=== PATIENT | female | born 1950 | race Caucasian/White ===

== ENCOUNTER 2018-08-28 08:38 | Outpatient (CLI) | payer MEDICARE, OTHER ==
--- NOTE | 2018-08-28 09:22 | XRAY Report ---
Reason: COUGH Procedure Date: 08/28/2018 Accession Number: [id number] / [id number] Procedure: XRN - Chest 2 View X-Ray CPT Code: 05210 FULL RESULT: EXAM: CHEST RADIOGRAPHY EXAM DATE: 08/28/2018 08:55 AM. CLINICAL HISTORY: Cough. COMPARISON: None. TECHNIQUE: 2 views. FINDINGS: Lungs/Pleura: No focal opacities evident. No pleural effusion. No pneumothorax. Normal volumes. Mediastinum: Heart and mediastinal contours are unremarkable. Other: None. IMPRESSION: No acute cardiopulmonary abnormality. RADIA
== END 2018-08-28 08:39 | disposition home or self-care (01) ==
LOC: DI.N 08:38
PROVIDERS: ATTEND Internal Medicine
DX: R04.2 Hemoptysis (principal)
CPT/HCPCS: 71046

== ENCOUNTER 2020-11-13 08:07 | Outpatient (CLI) | payer MEDICARE, OTHER ==
--- NOTE | 2020-11-13 09:10 | DEXA Report ---
PROCEDURE: Dexa Spine and/or Hip INDICATIONS: PRIMARY HYPERPARATHYROIDISM TECHNIQUE: Dual energy x-ray absorptiometry (DXA) was performed on a Algolux System. Regions measur ed are the AP Spine, femoral neck, and left forearm due to history of hyperparathyroidism.. COMPARISON: None. FINDINGS: Lumbar Spine: Bone Mineral Density 1.575 g/cm/cm,T score 3.3, Left Hip: Bone Mineral Density 1.040 g/cm/cm,T score 0.3, Left Femoral Neck: Bone Mineral Density 1.049 g/cm/cm, T score 0.1, Left forearm: Bone Mineral Density 0.905 g/cm/cm, T score 0.3, (T score greater or equal to -1.0: NORMAL) (T score from -1.1 to -2.4: OSTEOPENIA) (T score less than or equal to -2.5 to: OSTEOPOROSIS) Impression: Normal bone mineral density. Patients with diagnosis of osteoporosis or osteopenia should have regular bone mineral density assess ment. For those eligible for Medicare, routine testing is allowed once every 2 years. Testing frequ ency can be increased for patients who have rapidly progressing disease or for those who are receivin g medical therapy to restore bone mass. Reviewed by: Ruslan Vargas MD on 11/13/2020 9:09 AM PDT Approved by: Ruslan Vargas MD on 11/13/2020 9:09 AM PDT Station ID: [id number]
== END 2020-11-13 08:08 | disposition home or self-care (01) ==
LOC: DI 08:07
PROVIDERS: ATTEND Internal Medicine
DX: E21.0 Primary hyperparathyroidism (principal)

== ENCOUNTER 2020-11-13 08:12 | Outpatient (CLI) | payer MEDICARE, OTHER ==
--- NOTE | 2020-11-16 11:45 | Mammography Report ---
BILATERAL DIGITAL SCREENING MAMMOGRAM 3D/2D: 11/13/2020 CLINICAL: Routine screening. Comparison is made to exams dated: 06/19/2015 ultrasound, 06/19/2015 mammogram, 05/26/2015 mammogram, and 09/23/2009 mammogram - [facility]. The tissue of both breasts is predominantly fatty. There is a stable benign focal asymmetry in both breasts. There also are stable benign calcification s in both breasts. No significant masses, calcifications, or other findings are seen in either breast. There has been no significant interval change. IMPRESSION: BENIGN There is no mammographic evidence of malignancy. A 1 year screening mammogram is recommended. This exam was interpreted at Station ID: [id number]. NOTE: For mammograms, a report in lay terms will be sent to the patient. Approximately 15% of breast malignancies will not be visualized mammographically. In the management of a palpable breast mass, a negative mammogram must not discourage biopsy of a clinically suspicious lesion. Electronically Signed By: Acosta Moody acr/penrad:11/13/2020 12:26:33 ACR BI-RADS Category 2: Benign Finding(s) 3342F PARENCHYMAL PATTERN: (F) - The breast(s) demonstrate(s) diffuse fatty replacement. BI-RADS CATEGORY: (2) - 2 RECOMMENDATION: (ANNUAL) - Recommend routine annual screening mammography. [id number] 1 year screening LATERALITY: (B)
== END 2020-11-13 08:13 | disposition home or self-care (01) ==
LOC: DI 08:12
PROVIDERS: ATTEND Internal Medicine
DX: Z12.31 Encounter for screening mammogram for malignant neoplasm of breast (principal)

== ENCOUNTER 2021-07-19 09:32 | Day surgery (SDC) | payer MEDICARE, OTHER ==
[2021-07-19] MEDS ORDERED: LACTATED RINGERS 1,000 ML IV ONE (10:07)
--- NOTE | 2021-07-19 10:09 | ANESTHESIA ---
Pre-Anesthesia VS, & Labs - Diagnosis positive fit - Procedure colonoscopy Vital Signs: Temp Pulse Resp BP Pulse Ox 36.8 C 71 16 150/87 H 99 07/19/21 09:46 07/19/21 09:46 07/19/21 09:46 07/19/21 09:46 07/19/21 09:46 Height: 5 ft 10 in Weight (kg): 87.6 kg Body Mass Index: 27.7 BMI Classification: Overweight - NPO >8 hours - Is Patient ?: No Home Medications and Allergies Home Medications: Ambulatory Orders 5-Hydroxytryptophan (5-Htp) [5-Htp Cr] 100 mg PO DAILY 07/12/21 Ascorbic Acid [Vitamin C] 500 mg PO DAILY 07/12/21 Aspirin [Aspirin EC] 81 mg PO DAILY 07/12/21 Biotin 5,000 mcg PO DAILY 07/12/21 Levothyroxine [Synthroid] 112 mcg PO QDAC 07/12/21 Multivitamin/Iron/Folic Acid [Centrum Adults Tablet] 1 each PO DAILY 07/12/21 Propranolol [Inderal] 10 mg PO ONCE PRN 07/12/21 Red Rice Yeast 1,200 mg PO DAILY 07/12/21 Ubidecarenone [Co Q-10] 300 mg PO DAILY 07/12/21 flaxseed oiL [Flaxseed Oil] 1,200 mg PO DAILY 07/12/21 5-Hydroxytryptophan (5-Htp) [5-Htp Cr] 100 mg PO DAILY 07/12/21 Ascorbic Acid [Vitamin C] 500 mg PO DAILY 07/12/21 Aspirin [Aspirin EC] 81 mg PO DAILY 07/12/21 Biotin 5,000 mcg PO DAILY 07/12/21 Levothyroxine [Synthroid] 112 mcg PO QDAC 07/12/21 Multivitamin/Iron/Folic Acid [Centrum Adults Tablet] 1 each PO DAILY 07/12/21 Propranolol [Inderal] 10 mg PO ONCE PRN 07/12/21 Red Rice Yeast 1,200 mg PO DAILY 07/12/21 Ubidecarenone [Co Q-10] 300 mg PO DAILY 07/12/21 flaxseed oiL [Flaxseed Oil] 1,200 mg PO DAILY 07/12/21 Allergies/Adverse Reactions: Allergies Allergy/AdvReac Type Severity Reaction Status Date / Time ampicillin Allergy Itching, Verified 07/12/21 12:48 blotchy red face gluten AdvReac Unknown Verified 07/12/21 12:48 ofloxacin AdvReac Nausea, Verified 07/12/21 12:48 dizziness Anes History & Medical History - Anesthetic History Anesthesia Complications: reports: No previous complications - Medical History Cardiovascular: reports: Hypertension, High cholesterol, Other Pulmonary: reports: None Gastrointestinal: reports: Other Urinary: reports: None Musculoskeletal: reports: Osteoarthritis Endocrine/Autoimmune: reports: HyPOthyroidism Skin: reports: Rosacea History of Cancer?: No - Surgical History Gynecologic: reports: Hysterectomy Exam General: Alert, Oriented x3 Dental: WNL Mouth Opening: Greater than 4 Fingerbreadths Neck Mobility: Normal Mallampati classification: II Respiratory: Lungs clear Cardiovascular: Regular rate, Normal S1, Normal S2 Plan Anesthesia Type: Total IV Consent for Procedure(s) Verified and Reviewed: Yes Code Status: Attempt Resuscitation ASA classification: 2-Mild systemic disease Is this case an emergency?: No
[2021-07-19] MEDS ORDERED: PROPOFOL 500 MG/50 ML 500 MG/50 ML VIAL ONE (10:23)
[2021-07-19 11:34] VITALS: BP 122/64
--- NOTE | 2021-07-19 12:36 | ANESTHESIA POST OP EVALUATION ---
Anesthesia Post Eval - Post Anesthesia Eval Vitals: Last Vital Signs Temp 36.6 C 07/19/21 11:14 Pulse 65 07/19/21 11:31 Resp 20 07/19/21 11:31 BP 122/64 07/19/21 11:31 Pulse Ox 98 07/19/21 11:31 CV Function Including HR & BP: Stable Pain Control: Satisfactory Nausea & Vomiting: Negative Mental Status: Baseline Respiratory Status: Airway Patent Hydration Status: Satisfactory Anesthesia Complications: None
== END 2021-07-19 09:33 | disposition home or self-care (01) ==
LOC: SDS 09:32
PROVIDERS: ATTEND Surgery
PROC: 0DBL8ZZ Excision of Transverse Colon, Via Natural or Artificial Opening Endoscopic (ICD-10-PCS; 2021-07-19)
PROC: 0DBH8ZX Excision of Cecum, Via Natural or Artificial Opening Endoscopic, Diagnostic (ICD-10-PCS; principal; 2021-07-19 10:45)
DX: R19.5 Other fecal abnormalities (principal); D12.0 Benign neoplasm of cecum; D12.3 Benign neoplasm of transverse colon; K64.8 Other hemorrhoids; K57.30 Diverticulosis of large intestine without perforation or abscess without bleeding; K64.4 Residual hemorrhoidal skin tags; Z83.71 Family history of colonic polyps
CPT/HCPCS: 45380; 45385; J7120

== ENCOUNTER 2021-08-10 07:10 | Outpatient (CLI) | payer MEDICARE, OTHER ==
[2021-08-10 12:22] LABS: ALBUMIN 4.1 g/dL (3.2-5.5); ALBUMIN/GLOBULIN RATIO 1.1 (1.0-2.2); BILIRUBIN,TOTAL 0.8 mg/dL (0.2-1.0); CALCIUM 10.6 mg/dL (8.5-10.3); CREATININE 0.7 mg/dL (0.4-1.0); TOTAL PROTEIN 7.7 g/dL (6.7-8.2)
[2021-08-10 12:41] LABS: BASOPHILS # (AUTO) 0.1 10^3/uL (0.0-0.1); BASOPHILS % (AUTO) 0.8 %; EOSINOPHILS # (AUTO) 0.2 10^3/uL (0.0-0.7); HCT - HEMATOCRIT 42.4 % (37.0-47.0); LYMPHOCYTES # (AUTO) 2.5 10^3/uL (1.5-3.5); LYMPHOCYTES % (AUTO) 29.6 %; MEAN CORPUSCULAR HEMOGLOBIN 32.6 pg (27.0-31.0); MEAN CORPUSCULAR VOLUME 98.8 fL (81.0-99.0); MEAN PLATELET VOLUME 11.2 fL (7.9-10.8); MONOCYTES # (AUTO) 1.1 10^3/uL (0.0-1.0); MONOCYTES % (AUTO) 13.4 %; NEUTROPHILS # (AUTO) 4.6 10^3/uL (1.5-6.6); PLT - PLATELET COUNT 294 10^3/uL (130-450); RED BLOOD COUNT 4.29 10^6/uL (4.20-5.40); WHITE BLOOD COUNT 8.5 x10^3/uL (4.8-10.8)
== END 2021-08-10 07:11 | disposition home or self-care (01) ==
LOC: LAB.N 07:10
PROVIDERS: ATTEND Surgery
DX: K63.9 Disease of intestine, unspecified (principal)
CPT/HCPCS: 36415; 80053; 82378; 85025

== ENCOUNTER 2021-08-10 13:30 | Outpatient (CLI) | payer MEDICARE, OTHER ==
[2021-08-10] MEDS ORDERED: IOVERSOL 320 100 ML VIAL IVP ONE ×2 (13:46→17:51)
[2021-08-10] MEDS ORDERED: IOVERSOL 320 50 ML VIAL ONE (13:46)
[2021-08-10] MEDS ORDERED: IOVERSOL 320 50 ML VIAL PO ONE (17:51)
--- NOTE | 2021-08-10 21:32 | CT Report ---
PROCEDURE: Abdomen/Pelvis W INDICATIONS: CECAL MASS CONTRAST: IV CONTRAST: Optiray 320 ml: 100 PO CONTRAST: Optiray 320 ml50 TECHNIQUE: After the administration of IV and oral contrast, 5 mm thick sections acquired from the diaphragms to the symphysis. 5 mm thick coronal and sagittal reformats were acquired. For radiation dose reducti on, the following was used: automated exposure control, adjustment of mA and/or kV according to irena ent size. COMPARISON: None. FINDINGS: Image quality: Excellent. ABDOMEN: Lung bases: Lung bases are clear. Heart size is normal. Solid organs: Liver is mildly enlarged measuring 16.4 cm. The spleen is normal in size and enhanceme nt. Hepatic steatosis is present. Gallbladder is unremarkable Biliary system is non dilated. Pancre as enhances normally. No adrenal nodules. Kidneys demonstrate normal size and enhancement, without hydronephrosis. Peritoneum and bowel: Bowel loops demonstrate normal wall thickness and caliber. There is lobulated thickening of the rectum particularly within within the posterior aspect. No distinct cecal mass is i dentified as indicated in history. Prominent stool is present within the cecum. Minimal scattered div erticula are present. No free fluid or air. Nodes and vessels: No retroperitoneal or mesenteric adenopathy by size criteria. Aorta and inferior vena cava are normal in size. Miscellaneous: No ventral hernias. PELVIS: Genitourinary: Bladder wall thickness is normal. Miscellaneous: No inguinal hernias or adenopathy. Bones: No suspicious bony lesions. No vertebral body compression fractures. IMPRESSION: Lobulated thickening of the rectum as described above. Mass in this region cannot be excluded and fur ther evaluation with colonoscopy is recommended. No visualized cecal mass as noted in clinical history. Prominent stool is present within the cecum. Reviewed by: Danielle Nicole MD on 08/10/2021 9:31 PM PST Approved by: Danielle Nicole MD on 08/10/2021 9:31 PM PST Station ID: [id number]
== END 2021-08-10 13:31 | disposition home or self-care (01) ==
LOC: LAB 13:30
PROVIDERS: ATTEND Surgery
DX: K63.9 Disease of intestine, unspecified (principal); R93.3 Abnormal findings on diagnostic imaging of other parts of digestive tract
CPT/HCPCS: 36415; 74177; 80053; 82378; 85025; Q9967

== ENCOUNTER 2021-09-13 07:15 | Inpatient (IN) | payer MEDICARE, OTHER ==
[2021-09-13] MEDS ORDERED: LACTATED RINGERS 1,000 ML IV ONE ×2 (07:24→11:36)
[2021-09-13] MEDS ORDERED: CEFAZOLIN SODIUM IN 0.9 % NACL 2 GM/50 ML BAG IV ONE (07:36)
[2021-09-13] MEDS ORDERED: metroNIDAZOLE 500 MG/100 ML 500 MG/100 ML BAG ONE (07:37)
[2021-09-13] MEDS ORDERED: BUPIVACAINE 0.25% PF 30 ML VIAL ONE (07:49)
[2021-09-13] MEDS ORDERED: LIDOCAINE MPF 2%-EPI 1:200000 20 ML VIAL ONE (07:50)
[2021-09-13] MEDS ORDERED: CELECOXIB 100 MG CAPSULE PO ONE (08:01)
[2021-09-13] MEDS ORDERED: ACETAMINOPHEN 500 MG TABLET PO ONE (08:01)
[2021-09-13] MEDS ORDERED: ACETAMINOPHEN 1,000 MG/100 ML 100 ML IV ONE (08:02)
[2021-09-13] MEDS ORDERED: GABAPENTIN 400 MG CAPSULE ONE (08:02)
--- NOTE | 2021-09-13 08:35 | ANESTHESIA ---
Pre-Anesthesia VS, & Labs - Diagnosis large cecal polyp - Procedure R laparoscopic hemicolectomy Height: 5 ft 9 in Weight (kg): 87.8 kg Body Mass Index: 28.5 BMI Classification: Overweight - NPO >8 hours Last Fluid Intake: sips wERAS meds - Is Patient ?: No - Lab Results Current Lab Results: Laboratory Tests 09/13/21 07:56: POC Whole Bld Glucose 91 Lab results reviewed: Yes Home Medications and Allergies Home Medications: Ambulatory Orders Losartan Potassium 25 mg PO DAILY 09/06/21 5-Hydroxytryptophan (5-Htp) [5-Htp Cr] 100 mg PO DAILY 07/12/21 Ascorbic Acid [Vitamin C] 500 mg PO DAILY 07/12/21 Aspirin [Aspirin EC] 81 mg PO DAILY 07/12/21 Biotin 5,000 mcg PO DAILY 07/12/21 Levothyroxine [Synthroid] 112 mcg PO QDAC 07/12/21 Multivitamin/Iron/Folic Acid [Centrum Adults Tablet] 1 each PO DAILY 07/12/21 Propranolol [Inderal] 10 mg PO ONCE PRN 07/12/21 Red Rice Yeast 1,200 mg PO DAILY 07/12/21 Ubidecarenone [Co Q-10] 300 mg PO DAILY 07/12/21 flaxseed oiL [Flaxseed Oil] 1,200 mg PO DAILY 07/12/21 Losartan Potassium 25 mg PO DAILY 09/06/21 Allergies/Adverse Reactions: Allergies Allergy/AdvReac Type Severity Reaction Status Date / Time ampicillin Allergy Itching, Verified 09/13/21 07:15 blotchy red face gluten AdvReac Unknown Verified 09/13/21 07:15 ofloxacin AdvReac Nausea, Verified 09/13/21 07:15 dizziness Anes History & Medical History - Anesthetic History Anesthesia Complications: reports: No previous complications Family history of Anesthesia Complications: Denies Family history of Malignant Hyperthermia: Denies - Medical History Cardiovascular: reports: Hypertension, High cholesterol, Other Pulmonary: reports: None Gastrointestinal: reports: Other (large cecal polyp found in routine colonoscopsy) Urinary: reports: None Musculoskeletal: reports: Osteoarthritis Endocrine/Autoimmune: reports: HyPOthyroidism Skin: reports: Rosacea History of Cancer?: No - Surgical History General: reports: Colonoscopy Gynecologic: reports: Hysterectomy Exam General: Alert, Oriented x3, Cooperative Dental: WNL Mouth Openin Fingerbreadth Neck Mobility: Normal Mallampati classification: II Thyromental Distance: 4-6 cm Respiratory: Lungs clear, Normal breath sounds, No respiratory distress Cardiovascular: Regular rate (pt states hx of skipping beats, NSR tele) Neurological: Normal speech Mental/Cognitive Status: Alert/Oriented X3, Normal for patient Cognitive Status: Within normal limits Plan Anesthesia Type: General Consent for Procedure(s) Verified and Reviewed: Yes Code Status: Attempt Resuscitation ASA classification: 2-Mild systemic disease Is this case an emergency?: No
[2021-09-13] MEDS ORDERED: ePHEDrine 50 MG/ML VIAL IVP PRN (08:38)
[2021-09-13] MEDS ORDERED: ATROPINE ABBOJECT 1 MG/10 ML SYRINGE IVP PRN (08:38)
[2021-09-13] MEDS ORDERED: fentaNYL 100 MCG/2 ML VIAL IVP PRN (08:38)
[2021-09-13] MEDS ORDERED: ONDANSETRON 4 MG/2 ML VIAL IVP PRN ×2 (08:38→11:28)
[2021-09-13] MEDS ORDERED: NALOXONE 0.4 MG/ML VIAL IVP PRN (08:38)
[2021-09-13] MEDS ORDERED: MORPHINE 2 MG/ML CARPUJECT IVP PRN (08:38)
[2021-09-13] MEDS ORDERED: HYDROmorphone 0.5 MG/0.5 ML SYRINGE IVP PRN ×2 (08:38→11:36)
[2021-09-13] MEDS ORDERED: METOCLOPRAMIDE 10 MG/2 ML VIAL IVP PRN (08:38)
[2021-09-13] MEDS ORDERED: LACTATED RINGERS 1,000 ML IV SCH (09:00)
[2021-09-13] MEDS ORDERED: ROCURONIUM 50 MG/5 ML VIAL ONE ×2 (09:07→10:21)
[2021-09-13] MEDS ORDERED: PROPOFOL 200 MG/20 ML VIAL IVP ONE (09:07)
[2021-09-13] MEDS ORDERED: LIDOCAINE-MPF 2% 5 ML VIAL ONE (09:07)
[2021-09-13] MEDS ORDERED: MIDAZOLAM 2 MG/2 ML VIAL ONE (09:10)
[2021-09-13] MEDS ORDERED: ePHEDrine 50 MG/ML VIAL IVP ONE (09:45)
[2021-09-13] MEDS ORDERED: SODIUM CHLORIDE 0.9% 10 ML VIAL IVP ONE (09:46)
[2021-09-13] MEDS ORDERED: DEXAMETHASONE 4 MG/ML VIAL ONE ×2 (09:48→12:10)
[2021-09-13] MEDS ORDERED: LIDOCAINE MPF 2%-EPI 1:200000 20 ML VIAL SUBQ ONE ×2 (09:52)
[2021-09-13] MEDS ORDERED: BUPIVACAINE 0.25% PF 30 ML VIAL SUBQ ONE ×2 (09:52)
[2021-09-13] MEDS ORDERED: HYDROmorphone 1 MG/ML CARPUJECT ONE (10:13)
[2021-09-13] MEDS ORDERED: KETAMINE 500 MG/10 ML VIAL ONE (10:13)
[2021-09-13] MEDS ORDERED: ROPIVACAINE 0.5% PF 20 ML AMPULE ONE (10:29)
--- NOTE | 2021-09-13 11:21 | OPERATIVE REPORT ---
Operative Report - General Admit Date: 09/13/21 Procedure Date: 09/13/21 Planned Procedure: Laparoscopic right hemicolectomy Pre-Op Diagnosis: Unresectable polyp of the cecum Procedure Performed: Open right colectomy with primary anastomosis Post Op Diagnosis: Unresectable polyp of the cecum - Procedure Note Primary Surgeon: Kenrick Anesthesia Provider: MILTON Sanders Anesthesia Technique: General ET tube, Regional block Pathology: Right colon and attached mesentery Estimated Blood Loss (mL): 25 Findings: 1. Dense pelvic and right upper quadrant adhesions. 2. Obliteration of the white line of Toldt with dense adhesions of the colon to the retroperitoneum. 3. Palpable lesion in the cecum with no abnormality of the serosal surface of the colon. 4. No visibly or palpably enlarged lymph nodes appreciated Complications: None apparent - Other Other Information/Narrative: After obtaining informed consent, the patient is brought to the operating room and placed in the supine position on the operating table. Following successful induction of general endotracheal anesthesia, appropriate padding of all bony prominences, and placement of appropriate monitors, the abdomen was prepped and draped in the standard surgical fashion. A timeout was held per scope protocol. All elements of the surgical safety checklist were followed before, during, and after the procedure. We began the procedure by infiltrating a mixture of local anesthetics inferior to the umbilicus.This was done to create a field block. A small incision was created here and carried through the skin and subcutaneous tissue to reveal the fascia below. 2-0 Vicryl retention sutures were placed on either side of the midline and the abdomen was entered under direct vision using a 10 blade scalpel. A 10 mm blunt Hill balloon trocar was placed in the abdominal cavity.The abdomen was insufflated to 15 mmHg pressure. The camera was placed through the midline port. We immediately noted dense abdominal adhesions with essential obliteration of the pelvic cavity.A second 5 mm trocar was placed in the right upper quadrant after infiltration with local anesthetic.Using these 2 ports, adhesiolysis was undertaken to create a safe space to place a trocar inferior to the umbilicus. A 5 mm blunt Hill balloon trocar was then placed inferior to the umbilicus.The patient was placed in Trendelenburg position. I began examination of the right lower quadrant.The Inc. place at the time of endoscopy was identified. The remainder of the surface of the cecum appeared completely normal. Attempt was made to rotate the cecum medially with realization that the white line of Toldt had been obliterated and there was no normal retroperitoneal space.I continued inferior dissection around the distal ileum and attempted to mobilize safely but I shortly decided that it was not safe to continue laparoscopically as I was not able to clearly identify the ureter.Further examination in the right upper quadrant revealed a shortened mesentery and dense adhesions of the transverse colon into the cheng hepatis.With these things in mind, I made the choice to convert to an open procedure and perform a limited right colectomy leaving the Paddock flexure in place.Trochars were removed and an infraumbilical incision created.A large wound protector was placed.A hand-held retractor was used to help create clear visualization of the right lower quadrant. With this in place, I was able to medially rotate the cecum with careful dissection taking pains to stay on the wall of the cecum. Again I evaluated the lesion and it was palpable but the serosal surface of the colon was completely smooth. The ileocolic vein and artery were identified and ligated at their origin or just distal to their origin. This was done with hemostats and stick ties. The LigaSure device was used to divide the remainder of the mesentery of the right colon. The right colon was then divided using a 75 mm gastrointestinal anastomotic device just proximal to the hepatic flexure. The distal ileum was divided just proximal to the ileocecal valve. Side to side anastomosis was created in a stapled fashion between the distal ileum and the proximal transverse colon. The anastomosis was carefully examined and all portions were oversewn with interrupted Vicryl or silk suture. The common channel was widely patent.The abdomen was then checked for hemostasis. It was irrigated with 2 L of warm saline solution and aspirated free of all fluid and particulate matter.The lower midline incision was then closed with running looped PDS and Monocryl was applied to the skin. The 2 remaining port sites were closed with Monocryl suture. All sponge, needle, and instrument counts are correct at the conclusion of the case. The patient was let awake from anesthesia without difficulty and taken to the postanesthesia care unit in good condition. She did receive a TAP block per anesthesia following the procedure.
[2021-09-13] MEDS ORDERED: SUGAMMADEX 200 MG/2 ML VIAL IVP ONE ×2 (11:24→12:26)
[2021-09-13] MEDS ORDERED: methocarbamoL 500 MG TABLET PO PRN (11:36)
--- NOTE | 2021-09-13 12:57 | ANESTHESIA POST OP EVALUATION ---
Anesthesia Post Eval - Post Anesthesia Eval Vitals: Last Vital Signs Temp 36.4 C L 09/13/21 12:38 Pulse 68 09/13/21 12:38 Resp 20 09/13/21 12:38 BP 126/57 L 09/13/21 12:38 Pulse Ox 93 09/13/21 12:38 CV Function Including HR & BP: Stable Pain Control: Satisfactory Nausea & Vomiting: Negative Mental Status: Baseline Respiratory Status: Airway Patent Hydration Status: Satisfactory Anesthesia Complications: None
[2021-09-13] MEDS: LACTATED RINGERS 1,000 ML IV SCH (13:25)
[2021-09-13] MEDS: KETOROLAC 15 MG/ML VIAL IVP SCH ×3 (13:26→23:57)
[2021-09-13] MEDS: ACETAMINOPHEN 325 MG TABLET PO SCH ×3 (13:26→23:57)
--- NOTE | 2021-09-13 17:35 | PHARMACY PROGRESS NOTE ---
- Best Possible Medication History Admit Date and Time: 09/13/21 0715 Processed by: Nursing Medication History completed: Yes As the person ultimately responsible for medication therapy, providers are able to order a medication from an existing home medication list in [facility] via the "Reconcile Routine" prior to Confirmation of that medication by it support manager. Such practice is discouraged except when the physician, in their clinical judgment, deems that a medical need exists for a medication without regard to previous use.
[2021-09-13] MEDS: ceFAZolin 2 GM in SODIUM CHLORIDE 0.9% 100ML 100 ML IV SCH (17:56)
[2021-09-13] MEDS: metroNIDAZOLE 500 MG/100 ML 500 MG/100 ML BAG IV SCH (19:15)
[2021-09-13] MEDS: PREGABALIN 25 MG CAPSULE PO SCH (20:46)
[2021-09-14] MEDS: ceFAZolin 2 GM in SODIUM CHLORIDE 0.9% 100ML 100 ML IV SCH (02:07)
[2021-09-14] MEDS: metroNIDAZOLE 500 MG/100 ML 500 MG/100 ML BAG IV SCH (02:48)
[2021-09-14 05:18] LABS: BASOPHILS % (AUTO) 0.3 %; HCT - HEMATOCRIT 33.4 % (37.0-47.0); HGB - HEMOGLOBIN 11.1 g/dL (12.0-16.0); LYMPHOCYTES % (AUTO) 10.3 %; MEAN CORPUSCULAR HEMOGLOBIN 32.3 pg (27.0-31.0); MEAN CORPUSCULAR HGB CONC 33.2 g/dL (32.0-36.0); MEAN CORPUSCULAR VOLUME 97.1 fL (81.0-99.0); MEAN PLATELET VOLUME 10.3 fL (7.9-10.8); PLT - PLATELET COUNT 206 10^3/uL (130-450); RED BLOOD COUNT 3.44 10^6/uL (4.20-5.40); RED CELL DISTRIBUTION WIDTH 13.9 % (12.0-15.0); WHITE BLOOD COUNT 15.9 x10^3/uL (4.8-10.8)
[2021-09-14 05:22] LABS: ABNORMAL LYMPHS % (MANUAL) 0 %; BAND NEUTROPHILS % (MANUAL) 0 %
[2021-09-14 05:34] LABS: ALBUMIN/GLOBULIN RATIO 1.2 (1.0-2.2); BILIRUBIN,TOTAL 0.7 mg/dL (0.2-1.0); CREATININE 0.7 mg/dL (0.4-1.0); POTASSIUM 3.9 mmol/L (3.5-5.0); TOTAL PROTEIN 5.5 g/dL (6.7-8.2)
[2021-09-14 05:43] LABS: DIFFERENTIAL COMMENT MANUAL DIFFERENTIAL; LYMPHOCYTES # (MANUAL) 1.7 10^3/uL (1.5-3.5); LYMPHOCYTES % (MANUAL) 11 %; MONOCYTES # (MANUAL) 1.4 10^3/uL (0.0-1.0); NEUTROPHILS # (MANUAL) 12.7 10^3/uL (1.5-6.6); PLATELET ESTIMATE, MANUAL NORMAL (130-450,000) (NORMAL); PLATELET MORPHOLOGY NORMAL APPEARANCE (NORMAL); RBC MORPHOLOGY (MULTIPLE) NORMAL APPEARANCE (NORMAL); WBC MORPHOLOGY (MULTIPLE) NORMAL APPEARANCE (NORMAL)
[2021-09-14] MEDS: KETOROLAC 15 MG/ML VIAL IVP SCH ×4 (06:02→23:52)
[2021-09-14] MEDS: ACETAMINOPHEN 325 MG TABLET PO SCH ×4 (06:02→23:52)
[2021-09-14] MEDS: PANTOPRAZOLE 40 MG TABLET PO SCH (06:02)
[2021-09-14] MEDS: LEVOTHYROXINE 112 MCG TABLET PO SCH (06:02)
[2021-09-14] MEDS: LOSARTAN 50 MG TABLET PO SCH (08:32)
[2021-09-14] MEDS: PREGABALIN 25 MG CAPSULE PO SCH ×2 (08:32→20:31)
[2021-09-14] MEDS: ENOXAPARIN 40 MG/0.4 ML SYRINGE SUBQ SCH (08:33)
[2021-09-14] MEDS: polyethylene glycoL 3350 17 GM PACKET PO SCH (10:33)
--- NOTE | 2021-09-14 12:46 | PROVIDER PROGRESS NOTE ---
Subjective - General Admit Date: 09/13/21 Procedure Date: 09/13/21 Post Op Days: 1 - Review of Systems Wound/Incisions: positive: Healing well, Dressing dry and intact General: positive: No symptoms HEENT: positive: No symptoms Pulmonary: positive: No symptoms Cardiovascular: positive: No symptoms Gastrointestinal: positive: No symptoms Genitourinary: positive: No symptoms Musculoskeletal: positive: No symptoms Skin: positive: No symptoms Psychiatric: positive: No symptoms All Other Systems: positive: Reviewed and negative - Other Other Information/Narrative: Lora is in really good spirits today. She denies any pain at all. She says she saw double yesterday but today she feels a little unsteady on her feet but otherwise quite good.She is sitting up at the bedside crocheting hat. She had 1 episode of emesis shortly after arriving to her room yesterday following surgery but has not had any nausea since. Objective - Patient Data Reviewed Vital Signs: Yes Vital Signs: Vital Signs x48h Temp Pulse Pulse Resp BP Pulse Ox 09/14/21 11:32 36.8 C 80 20 109/47 L 99 09/14/21 08:00 36.8 C 83 18 113/48 L 97 09/14/21 04:53 36.3 C L 78 16 110/52 L 96 Weight: Weight 09/12/21 09/13/21 09/14/21 23:59 23:59 23:59 Weight (kg) 87.8 kg Intake & Output: Intake and Output Totals x24h 09/12/21 09/13/21 09/14/21 23:59 23:59 23:59 Intake Total 1950 700 Output Total 1435 500 Balance 515 200 - Lab Results Lab Results: 09/14/21 04:50 09/14/21 04:50 Other Lab Results: Lab Results x24hrs 09/14/21 09/14/21 09/14/21 Range/Units 11:19 07:35 04:50 WBC (4.8-10.8) x10^3/uL RBC (4.20-5.40) 10^6/uL Hgb (12.0-16.0) g/dL Hct (37.0-47.0) % MCV (81.0-99.0) fL MCH (27.0-31.0) pg MCHC (32.0-36.0) g/dL RDW (12.0-15.0) % Plt Count (130-450) 10^3/uL MPV (7.9-10.8) fL Neut # (Auto) Lymph # (Auto) [place] # (Auto) Eos # (Auto) Baso # (Auto) Absolute Nucleated RBC Total Counted Band Neuts % (Manual) (0 - 10) % Abnorm Lymph % (Manual) % Nucleated RBC % Neutrophils # (Manual) (1.5-6.6) 10^3/uL Lymphocytes # (Manual) (1.5-3.5) 10^3/uL Monocytes # (Manual) (0.0-1.0) 10^3/uL Eosinophils # (Manual) (0-0.7) 10^3/uL Basophils # (Manual) (0-0.1) 10^3/uL Differential Comment WBC Morphology (NORMAL) Platelet Estimate (NORMAL) Platelet Morphology (NORMAL) RBC Morph Micro Appear (NORMAL) Sodium 138 (135-145) mmol/L Potassium 3.9 (3.5-5.0) mmol/L Chloride 107 (101-111) mmol/L Carbon Dioxide 23 (21-32) mmol/L Anion Gap 8.0 (6-13) BUN 17 (6-20) mg/dL Creatinine 0.7 (0.4-1.0) mg/dL Estimated GFR (MDRD) 82 L (>89) Glucose 119 H (70-100) mg/dL POC Whole Bld Glucose 108 H 105 H (70 - 100) mg/dL Calcium 9.0 (8.5-10.3) mg/dL Total Bilirubin 0.7 (0.2-1.0) mg/dL AST 28 (10-42) IU/L ALT 27 (10-60) IU/L Alkaline Phosphatase 27 L (42-121) IU/L Total Protein 5.5 L (6.7-8.2) g/dL Albumin 3.0 L (3.2-5.5) g/dL Globulin 2.5 (2.1-4.2) g/dL Albumin/Globulin Ratio 1.2 (1.0-2.2) 09/14/21 09/13/21 09/13/21 Range/Units 04:50 20:16 16:53 WBC 15.9 H (4.8-10.8) x10^3/uL RBC 3.44 L (4.20-5.40) 10^6/uL Hgb 11.1 L (12.0-16.0) g/dL Hct 33.4 L (37.0-47.0) % MCV 97.1 (81.0-99.0) fL MCH 32.3 H (27.0-31.0) pg MCHC 33.2 (32.0-36.0) g/dL RDW 13.9 (12.0-15.0) % Plt Count 206 (130-450) 10^3/uL MPV 10.3 (7.9-10.8) fL Neut # (Auto) Not Reportable Lymph # (Auto) Not Reportable [place] # (Auto) Not Reportable Eos # (Auto) Not Reportable Baso # (Auto) Not Reportable Absolute Nucleated RBC Not Reportable Total Counted 100 Band Neuts % (Manual) 0 (0 - 10) % Abnorm Lymph % (Manual) 0 % Nucleated RBC % Not Reportable Neutrophils # (Manual) 12.7 H (1.5-6.6) 10^3/uL Lymphocytes # (Manual) 1.7 (1.5-3.5) 10^3/uL Monocytes # (Manual) 1.4 H (0.0-1.0) 10^3/uL Eosinophils # (Manual) 0.0 (0-0.7) 10^3/uL Basophils # (Manual) 0.0 (0-0.1) 10^3/uL Differential Comment MANUAL DIFFERENTIAL WBC Morphology NORMAL APPEARANCE (NORMAL) Platelet Estimate NORMAL (130-450,000) (NORMAL) Platelet Morphology NORMAL APPEARANCE (NORMAL) RBC Morph Micro Appear NORMAL APPEARANCE (NORMAL) Sodium (135-145) mmol/L Potassium (3.5-5.0) mmol/L Chloride (101-111) mmol/L Carbon Dioxide (21-32) mmol/L Anion Gap (6-13) BUN (6-20) mg/dL Creatinine (0.4-1.0) mg/dL Estimated GFR (MDRD) (>89) Glucose (70-100) mg/dL POC Whole Bld Glucose 159 H 127 H (70 - 100) mg/dL Calcium (8.5-10.3) mg/dL Total Bilirubin (0.2-1.0) mg/dL AST (10-42) IU/L ALT (10-60) IU/L Alkaline Phosphatase (42-121) IU/L Total Protein (6.7-8.2) g/dL Albumin (3.2-5.5) g/dL Globulin (2.1-4.2) g/dL Albumin/Globulin Ratio (1.0-2.2) - Current Medications Current Medications: Current Medications Generic Name Dose Route Start Last Admin Trade Name Freq PRN Reason Stop Dose Admin Acetaminophen 650 mg 09/13/21 13:00 09/14/21 06:02 Acetaminophen 325 Mg Tablet PO 650 mg Q6HR KASIE Administration Enoxaparin Sodium 40 mg 09/14/21 09:00 09/14/21 08:33 Enoxaparin 40 Mg/0.4 Ml Syringe SUBQ 40 mg DAILY KASIE Administration Lactated Ringer's 1,000 mls @ 50 mls/hr 09/13/21 12:00 09/13/21 13:25 Lr IV 50 mls/hr .Q20H KASIE Administration Ketorolac Tromethamine 15 mg 09/13/21 13:00 09/14/21 06:02 Ketorolac 15 Mg/Ml Vial IVP 09/18/21 12:59 15 mg Q6HR KASIE Administration Levothyroxine Sodium 112 mcg 09/14/21 07:00 09/14/21 06:02 Levothyroxine 112 Mcg Tablet PO 112 mcg QDAC KASIE Administration Losartan Potassium 25 mg 09/14/21 09:00 09/14/21 08:32 Losartan 50 Mg Tablet PO 25 mg DAILY KASIE Administration Ondansetron HCl 4 mg 09/13/21 11:28 09/13/21 13:48 Ondansetron 4 Mg/2 Ml Vial IVP 4 mg Q6HR PRN Administration Nausea / Vomiting Pantoprazole Sodium 40 mg 09/14/21 07:00 09/14/21 06:02 Pantoprazole 40 Mg Tablet PO 40 mg QDAC KASIE Administration Polyethylene Glycol 17 gm 09/14/21 11:00 09/14/21 10:33 Polyethylene Glycol 3350 17 Gm Packet PO 17 gm DAILY KASIE Administration Pregabalin 75 mg 09/13/21 21:00 09/14/21 08:32 Pregabalin 25 Mg Capsule PO 75 mg BID KASIE Administration - Physical Exam Wound/Incisions: positive: Healing well, Dressing dry and intact General Appearance: positive: No acute distress Eyes Bilateral: positive: Normal inspection, PERRL, EOMI ENT: positive: ENT inspection nml Neck: positive: Nml inspection Respiratory: positive: Chest non-tender, No respiratory distress, Breath sounds nml Cardiovascular: positive: Regular rate & rhythm Abdomen: positive: Nml bowel sounds, Tenderness. negative: Guarding, Rebound Back: positive: Nml inspection. negative: CVA tenderness (R), CVA tenderness (L) Skin: positive: Color nml Extremities: positive: Non-tender, Full ROM Neurologic/Psychiatric: positive: Oriented x3 ABX Reporting Has patient been on IV antibiotics over the past 48 hours?: Yes Impression/Plan - Problem List Problem List: Postop day 1 after right hemicolectomy for unresectable cecal mass. Awaiting pathology. 1. Continue eras protocol 2. Pain control appears to be excellent 3. Likely home Monday or . 4. Needs to walk in the halls and be a little steadier on her feet
[2021-09-14] MEDS: LACTATED RINGERS 1,000 ML IV SCH (13:43)
[2021-09-15] MEDS: LACTATED RINGERS 1,000 ML IV SCH (03:44)
[2021-09-15] MEDS: ACETAMINOPHEN 325 MG TABLET PO SCH ×3 (05:13→20:02)
[2021-09-15] MEDS: KETOROLAC 15 MG/ML VIAL IVP SCH ×3 (05:13→20:02)
[2021-09-15 05:52] LABS: BASOPHILS # (AUTO) 0.1 10^3/uL (0.0-0.1); BASOPHILS % (AUTO) 0.4 %; EOSINOPHILS # (AUTO) 0.1 10^3/uL (0.0-0.7); EOSINOPHILS % (AUTO) 1.1 %; HCT - HEMATOCRIT 34.1 % (37.0-47.0); HGB - HEMOGLOBIN 11.4 g/dL (12.0-16.0); LYMPHOCYTES % (AUTO) 15.2 %; MEAN CORPUSCULAR HEMOGLOBIN 32.7 pg (27.0-31.0); MEAN CORPUSCULAR HGB CONC 33.4 g/dL (32.0-36.0); MEAN CORPUSCULAR VOLUME 97.7 fL (81.0-99.0); MONOCYTES # (AUTO) 0.9 10^3/uL (0.0-1.0); MONOCYTES % (AUTO) 6.9 %; NEUTROPHILS # (AUTO) 9.8 10^3/uL (1.5-6.6); PLT - PLATELET COUNT 194 10^3/uL (130-450); RED BLOOD COUNT 3.49 10^6/uL (4.20-5.40); RED CELL DISTRIBUTION WIDTH 13.8 % (12.0-15.0)
[2021-09-15] MEDS: PANTOPRAZOLE 40 MG TABLET PO SCH (06:03)
[2021-09-15] MEDS: LEVOTHYROXINE 112 MCG TABLET PO SCH (06:03)
[2021-09-15 06:06] LABS: ALBUMIN 3.1 g/dL (3.2-5.5); CREATININE 0.9 mg/dL (0.4-1.0); POTASSIUM 3.8 mmol/L (3.5-5.0); TOTAL PROTEIN 6.1 g/dL (6.7-8.2)
[2021-09-15] MEDS: ENOXAPARIN 40 MG/0.4 ML SYRINGE SUBQ SCH (08:47)
[2021-09-15] MEDS: PREGABALIN 25 MG CAPSULE PO SCH ×2 (08:48→20:02)
[2021-09-15] MEDS: LOSARTAN 50 MG TABLET PO SCH (08:48)
[2021-09-15] MEDS: polyethylene glycoL 3350 17 GM PACKET PO SCH (08:49)
[2021-09-16] MEDS: KETOROLAC 15 MG/ML VIAL IVP SCH ×2 (00:10→06:12)
[2021-09-16] MEDS: ACETAMINOPHEN 325 MG TABLET PO SCH ×2 (00:10→06:12)
[2021-09-16 05:28] LABS: BASOPHILS % (AUTO) 0.3 %; EOSINOPHILS # (AUTO) 0.4 10^3/uL (0.0-0.7); EOSINOPHILS % (AUTO) 3.4 %; HGB - HEMOGLOBIN 9.6 g/dL (12.0-16.0); LYMPHOCYTES # (AUTO) 1.7 10^3/uL (1.5-3.5); MEAN CORPUSCULAR HEMOGLOBIN 31.7 pg (27.0-31.0); MEAN CORPUSCULAR HGB CONC 33.1 g/dL (32.0-36.0); MEAN CORPUSCULAR VOLUME 95.7 fL (81.0-99.0); MEAN PLATELET VOLUME 10.4 fL (7.9-10.8); MONOCYTES % (AUTO) 8.2 %; NEUTROPHILS # (AUTO) 8.4 10^3/uL (1.5-6.6); NEUTROPHILS % (AUTO) 72.6 %; PLT - PLATELET COUNT 185 10^3/uL (130-450); RED BLOOD COUNT 3.03 10^6/uL (4.20-5.40); RED CELL DISTRIBUTION WIDTH 13.3 % (12.0-15.0); WHITE BLOOD COUNT 11.6 x10^3/uL (4.8-10.8)
[2021-09-16 05:40] LABS: ALBUMIN 2.6 g/dL (3.2-5.5); BILIRUBIN,TOTAL 0.6 mg/dL (0.2-1.0); CALCIUM 8.3 mg/dL (8.5-10.3); CREATININE 0.7 mg/dL (0.4-1.0); POTASSIUM 3.7 mmol/L (3.5-5.0); TOTAL PROTEIN 5.3 g/dL (6.7-8.2)
[2021-09-16] MEDS: LEVOTHYROXINE 112 MCG TABLET PO SCH (06:12)
[2021-09-16] MEDS: PANTOPRAZOLE 40 MG TABLET PO SCH (06:12)
[2021-09-16 07:19] VITALS: BP 123/53
[2021-09-16] MEDS: PREGABALIN 25 MG CAPSULE PO SCH (08:07)
[2021-09-16] MEDS: LOSARTAN 50 MG TABLET PO SCH (08:08)
[2021-09-16] MEDS: polyethylene glycoL 3350 17 GM PACKET PO SCH (08:08)
[2021-09-16] MEDS: ENOXAPARIN 40 MG/0.4 ML SYRINGE SUBQ SCH (08:08)
--- NOTE | 2021-09-16 09:07 | PROVIDER PROGRESS NOTE ---
Subjective - Prog Note Date Prog Note Date: 09/15/21 Prog Note Time: 08:35 - Subjective Pt reports feeling: Improved Subjective: Lora decided to not take her Tylenol and Toradol last evening and she woke up in pain. Fortunately, soon as she got her medication she felt better. Today she denies any pain. She did have 1 small bowel movement that she said was a little chunky but not really solid. She denies any nausea and has been tolerating her diet without difficulty. Objective - Vital Signs/Intake & Output Reviewed Vital Signs: Yes Vital Signs: Vital Signs x48h Temp Pulse Resp BP Pulse Ox 09/16/21 07:16 36.6 C 67 16 123/53 L 100 09/16/21 05:00 36.7 C 76 17 119/56 L 97 Intake & Output: Intake & Output 09/13/21 09/14/21 09/15/21 09/16/21 23:59 23:59 23:59 23:59 Intake Total 1950 4768 3130 530 Output Total 1435 1475 1425 Balance 515 3293 1705 530 - Objective General Appearance: positive: No acute distress, Alert Eyes Bilateral: positive: Normal inspection ENT: positive: ENT inspection nml Neck: positive: Nml inspection Respiratory: positive: No respiratory distress, Breath sounds nml Cardiovascular: positive: Regular rate & rhythm Abdomen: positive: Tenderness, Other (Incision is well approximated, clean, and without erythema. Mild bruising.). negative: Guarding, Rebound Back: positive: Nml inspection Skin: positive: Color nml Extremities: positive: Non-tender Neurologic/Psychiatric: positive: Oriented x3 - Lab Results Fish Bones: 09/16/21 04:50 09/16/21 04:50 Other Labs: Lab Results x24hrs 09/16/21 09/16/21 09/16/21 Range/Units 07:15 04:50 04:50 WBC 11.6 H (4.8-10.8) x10^3/uL RBC 3.03 L (4.20-5.40) 10^6/uL Hgb 9.6 L (12.0-16.0) g/dL Hct 29.0 L (37.0-47.0) % MCV 95.7 (81.0-99.0) fL MCH 31.7 H (27.0-31.0) pg MCHC 33.1 (32.0-36.0) g/dL RDW 13.3 (12.0-15.0) % Plt Count 185 (130-450) 10^3/uL MPV 10.4 (7.9-10.8) fL Neut # (Auto) 8.4 H (1.5-6.6) 10^3/uL Lymph # (Auto) 1.7 (1.5-3.5) 10^3/uL [place] # (Auto) 1.0 (0.0-1.0) 10^3/uL Eos # (Auto) 0.4 (0.0-0.7) 10^3/uL Baso # (Auto) 0.0 (0.0-0.1) 10^3/uL Absolute Nucleated RBC 0.00 x10^3/uL Nucleated RBC % 0.0 /100WBC Sodium 128 L (135-145) mmol/L Potassium 3.7 (3.5-5.0) mmol/L Chloride 100 L (101-111) mmol/L Carbon Dioxide 21 (21-32) mmol/L Anion Gap 7.0 (6-13) BUN 15 (6-20) mg/dL Creatinine 0.7 (0.4-1.0) mg/dL Estimated GFR (MDRD) 82 L (>89) Glucose 98 (70-100) mg/dL POC Whole Bld Glucose 87 (70 - 100) mg/dL Calcium 8.3 L (8.5-10.3) mg/dL Total Bilirubin 0.6 (0.2-1.0) mg/dL AST 31 (10-42) IU/L ALT 26 (10-60) IU/L Alkaline Phosphatase 30 L (42-121) IU/L Total Protein 5.3 L (6.7-8.2) g/dL Albumin 2.6 L (3.2-5.5) g/dL Globulin 2.7 (2.1-4.2) g/dL Albumin/Globulin Ratio 1.0 (1.0-2.2) 09/15/21 09/15/21 09/15/21 Range/Units 21:09 16:31 11:07 WBC (4.8-10.8) x10^3/uL RBC (4.20-5.40) 10^6/uL Hgb (12.0-16.0) g/dL Hct (37.0-47.0) % MCV (81.0-99.0) fL MCH (27.0-31.0) pg MCHC (32.0-36.0) g/dL RDW (12.0-15.0) % Plt Count (130-450) 10^3/uL MPV (7.9-10.8) fL Neut # (Auto) (1.5-6.6) 10^3/uL Lymph # (Auto) (1.5-3.5) 10^3/uL [place] # (Auto) (0.0-1.0) 10^3/uL Eos # (Auto) (0.0-0.7) 10^3/uL Baso # (Auto) (0.0-0.1) 10^3/uL Absolute Nucleated RBC x10^3/uL Nucleated RBC % /100WBC Sodium (135-145) mmol/L Potassium (3.5-5.0) mmol/L Chloride (101-111) mmol/L Carbon Dioxide (21-32) mmol/L Anion Gap (6-13) BUN (6-20) mg/dL Creatinine (0.4-1.0) mg/dL Estimated GFR (MDRD) (>89) Glucose (70-100) mg/dL POC Whole Bld Glucose 111 H 114 H 82 (70 - 100) mg/dL Calcium (8.5-10.3) mg/dL Total Bilirubin (0.2-1.0) mg/dL AST (10-42) IU/L ALT (10-60) IU/L Alkaline Phosphatase (42-121) IU/L Total Protein (6.7-8.2) g/dL Albumin (3.2-5.5) g/dL Globulin (2.1-4.2) g/dL Albumin/Globulin Ratio (1.0-2.2) ABX Reporting Has patient been on IV antibiotics over the past 48 hours?: Yes Assessment/Plan - Problem List (1) Tubulovillous adenoma of colon Impression: Day #2 after right hemicolectomy for 2 very large tubulovillous adenomata of the proximal right colon. Multiple smaller tubulovillous polyps were appreciated as well. Fortunately, there is no invasive malignancy and all the margins are clear. 1. Encourage ambulation. She is much more steady on her feet. 2. Consider home tomorrow if she continues to do well.
--- NOTE | 2021-09-16 09:11 | Discharge Plan ---
Discharge Plan Problem Reviewed?: Yes Disposition: Home, Self Care Condition: Good Prescriptions: methocarbamoL [Robaxin] 500 mg PO Q6HR PRN #30 tablet PRN Reason: Spasms Pregabalin [Lyrica] 75 mg PO BID #20 cap Diet: Regular Activity Restrictions: 10 pound lifting restrict Shower Restrictions: No Driving Restrictions: Yes (After follow up) No Smoking: If you smoke, Please STOP! Call for help. Follow-up with: Finn Stubbs MD [Primary Care Provider] - Anna Choudhary MD [Provider Admit Priv/Credential] -
--- NOTE | 2021-09-16 09:13 | DISCHARGE SUMMARY ---
Discharge Summary Admit Date: 09/13/21 Discharge Date: 09/16/21 Discharging Provider: Kenrick Primary Care Provider: Stubbs Code Status: Attempt Resuscitation Condition at Discharge: Good Discharge Disposition: 01 Home, Self Care - DIAGNOSES Admission Diagnoses: Unresectable tubulovillous adenoma Discharge Diagnoses with Status of Each Condition: Resolved - HPI History of Present Illness: Lora is a wonderful 71-year-old lady who I met several years ago at my prior practice. She has a strong family history of colon polyps and colon cancer both in her mother and in her 3 daughters. She presented for her first colonoscopy and was found to have 2 very large tubulovillous adenomas in the right colon. Both of these were considered too large for endoscopic resection. In addition to these very large polyps that she had multiple other smaller polyps in the right colon and then a few other scattered throughout the remainder of the colon. CT scan was without evidence of malignancy or adenopathy. CEA was normal. On the date of surgery she presented for laparoscopic right hemicolec celia. - HOSPITAL COURSE Hospital Course: The surgical procedure was relatively uneventful. She was noted to have dense abdominal adhesions with scarring of the colon into the cheng hepatis and obliteration of the retroperitoneal planes around the right colon. For this reason the procedure was converted to open and then was successfully undertaken. [facility] and has had a smooth course. At this time, she is eating a regular diet without difficulty, walking unassisted, and having regular bowel movements. She has not required any narcotic pain medication since the day of surgery.To her home in the care of her 3 daughters. Discharge medications will include methocarbamol 500 mg every 6 hours, Lyrica 75 mg twice daily, and acetaminophen and ibuprofen as needed. - ALLERGIES Allergies/Adverse Reactions: Allergies Allergy/AdvReac Type Severity Reaction Status Date / Time ampicillin Allergy Itching, Verified 09/13/21 07:15 blotchy red face gluten AdvReac Unknown Verified 09/13/21 07:15 ofloxacin AdvReac Nausea, Verified 09/13/21 07:15 dizziness - MEDICATIONS Home Medications: Ambulatory Orders Medication Instructions Recorded Confirmed 5-Hydroxytryptophan (5-Htp) [5-Htp 100 mg PO DAILY 07/12/21 09/13/21 Cr] Ascorbic Acid [Vitamin C] 500 mg PO DAILY 07/12/21 09/13/21 Aspirin [Aspirin EC] 81 mg PO DAILY 07/12/21 09/13/21 Biotin 5,000 mcg PO DAILY 07/12/21 09/13/21 Levothyroxine [Synthroid] 112 mcg PO QDAC 07/12/21 09/13/21 Multivitamin/Iron/Folic Acid 1 each PO DAILY 07/12/21 09/13/21 [Centrum Adults Tablet] Propranolol [Inderal] 10 mg PO ONCE PRN 07/12/21 09/13/21 Red Rice Yeast 1,200 mg PO DAILY 07/12/21 09/13/21 Ubidecarenone [Co Q-10] 300 mg PO DAILY 07/12/21 09/13/21 flaxseed oiL [Flaxseed Oil] 1,200 mg PO DAILY 07/12/21 09/13/21 Losartan Potassium 25 mg PO DAILY 09/06/21 09/13/21 Acetaminophen [Tylenol] 650 mg PO Q6HR tablet 09/16/21 Pregabalin [Lyrica] 75 mg PO BID #20 cap 09/16/21 methocarbamoL [Robaxin] 500 mg PO Q6HR PRN #30 tablet 09/16/21 - PHYSICAL EXAM AT DISCHARGE General Appearance: positive: No acute distress, Alert Eyes Bilateral: positive: Normal inspection, PERRL, EOMI ENT: positive: ENT inspection nml Neck: positive: Nml inspection Respiratory: positive: No respiratory distress, Breath sounds nml Cardiovascular: positive: Regular rate & rhythm Peripheral Pulses: positive: 1+ Abdomen: positive: Nml bowel sounds, No distention. negative: Guarding, Rebound Back: negative: CVA tenderness (R), CVA tenderness (L) Skin: positive: Color nml, No rash Neurologic/Psychiatric: positive: Oriented x3 - LABS Result Diagrams: 09/16/21 04:50 09/16/21 04:50 - QUALITY (Female Hip Fx Only) Was patient sent home on osteoporosis medication?: No - FOLLOW UP Follow Up: As previously scheduled with [facility] surgical clinic. - TIME SPENT Time Spent in Discharge (Minutes): 20
== END 2021-09-16 10:45 | disposition home or self-care (01) | DRG 331 ==
LOC: MS2 07:15
PROVIDERS: ADMIT Surgery; ATTEND Surgery
PROC: 0WJP4ZZ Inspection of Gastrointestinal Tract, Percutaneous Endoscopic Approach (ICD-10-PCS; 2021-09-13)
PROC: 0DTF0ZZ Resection of Right Large Intestine, Open Approach (ICD-10-PCS; principal; 2021-09-13 08:45)
DX: D12.0 Benign neoplasm of cecum (principal); K66.0 Peritoneal adhesions (postprocedural) (postinfection); E21.0 Primary hyperparathyroidism; E78.5 Hyperlipidemia, unspecified; I10 Essential (primary) hypertension; Z53.31 Laparoscopic surgical procedure converted to open procedure; Z79.82 Long term (current) use of aspirin; Z79.890 Hormone replacement therapy; Z79.899 Other long term (current) drug therapy; Z80.0 Family history of malignant neoplasm of digestive organs; Z83.71 Family history of colonic polyps; Z88.0 Allergy status to penicillin; Z88.8 Allergy status to other drugs, medicaments and biological substances
CPT/HCPCS: 36415; 80053; 85025; A9270; J0131; J0690; J1650; J7120

== ENCOUNTER 2022-08-01 19:53 | Emergency (ER) | payer MEDICARE, OTHER ==
[2022-08-01 20:26] LABS: BASOPHILS # (AUTO) 0.1 10^3/uL (0.0-0.1); BASOPHILS % (AUTO) 0.9 %; EOSINOPHILS # (AUTO) 0.3 10^3/uL (0.0-0.7); EOSINOPHILS % (AUTO) 2.8 %; HCT - HEMATOCRIT 40.9 % (37.0-47.0); HGB - HEMOGLOBIN 13.3 g/dL (12.0-16.0); LYMPHOCYTES # (AUTO) 3.4 10^3/uL (1.5-3.5); LYMPHOCYTES % (AUTO) 38.2 %; MEAN CORPUSCULAR HEMOGLOBIN 31.7 pg (27.0-31.0); MEAN CORPUSCULAR HGB CONC 32.5 g/dL (32.0-36.0); MEAN CORPUSCULAR VOLUME 97.4 fL (81.0-99.0); MEAN PLATELET VOLUME 9.9 fL (7.9-10.8); MONOCYTES # (AUTO) 1.2 10^3/uL (0.0-1.0); MONOCYTES % (AUTO) 13.1 %; NEUTROPHILS # (AUTO) 3.9 10^3/uL (1.5-6.6); NEUTROPHILS % (AUTO) 44.9 %; PLT - PLATELET COUNT 265 10^3/uL (130-450); RED CELL DISTRIBUTION WIDTH 14.6 % (12.0-15.0); WHITE BLOOD COUNT 8.8 x10^3/uL (4.8-10.8)
--- NOTE | 2022-08-01 20:37 | XRAY Report ---
PROCEDURE: Chest 1 View X-Ray INDICATIONS: Chest pain TECHNIQUE: One view of the chest was acquired. COMPARISON: Lung bases on CT abdomen pelvis 08/10/2021. CXR 08/28/2018. FINDINGS: Surgical changes and devices: None. Lungs and pleura: No pleural effusions or pneumothorax. Lungs appear clear. Mediastinum: Mediastinal contours appear unchanged. Heart size is normal. Bones and chest wall: No suspicious bony lesions. Overlying soft tissues appear unremarkable. IMPRESSION: No acute cardiopulmonary abnormality identified. Reviewed by: Leonidas Ocampo MD on 08/01/2022 8:36 PM PST Approved by: Leonidas Ocampo MD on 08/01/2022 8:36 PM PST Station ID: [id number]
[2022-08-01 20:42] LABS: ALBUMIN 3.7 g/dL (3.2-5.5); ALBUMIN/GLOBULIN RATIO 1.1 (1.0-2.2); BILIRUBIN,TOTAL 0.5 mg/dL (0.2-1.0); CALCIUM 10.3 mg/dL (8.5-10.3); CREATININE 0.8 mg/dL (0.4-1.0); POTASSIUM 3.6 mmol/L (3.5-5.0); TOTAL PROTEIN 7.1 g/dL (6.7-8.2)
[2022-08-01 23:50] VITALS: BP 153/81
--- NOTE | 2022-08-02 00:06 | ED Physician Documentation ---
History of Present Illness - Stated complaint Stated Complaint: CHEST PX, HBP, CHEST TIGHT - Chief complaint Chief Complaint: Cardiac - History obtained from History obtained from: Patient - Additonal information Additional information: 72-year-old woman with history of palpitations presents with heart palpitations, high blood pressure, and chest tightness this evening. Patient states she was feeling normal prior to this. Denies shortness of breath, nausea, diaphoresis, fever, leg swelling, cough. Review of Systems Constitutional: denies: Fever Cardiac: reports: Chest pain / pressure, Palpitations Respiratory: denies: Dyspnea PD PAST MEDICAL HISTORY - Past Medical History Past Medical History: Yes Cardiovascular: Hypertension, High cholesterol, Other Respiratory: None Endocrine/Autoimmune: HyPOthyroidism GI: Other : None HEENT: Chronic vision loss Psych: None Musculoskeletal: Osteoarthritis Derm: Rosacea - Past Surgical History Past Surgical History: Yes General: Colonoscopy, Other /TRUCK TECHNICIAN: Hysterectomy - Present Medications Home Medications: Ambulatory Orders Medication Instructions Recorded Confirmed Levothyroxine [Synthroid] 125 mcg PO QDAC 07/12/21 08/01/22 Propranolol [Inderal] 10 mg PO BID 07/12/21 08/01/22 Losartan Potassium 50 mg PO DAILY 09/06/21 08/01/22 - Allergies Allergies/Adverse Reactions: Allergies Allergy/AdvReac Type Severity Reaction Status Date / Time ampicillin Allergy Itching, Verified 09/13/21 07:15 blotchy red face gluten AdvReac Unknown Verified 09/13/21 07:15 ofloxacin AdvReac Nausea, Verified 09/13/21 07:15 dizziness - Social History Does the pt smoke?: No Smoking Status: Never smoker Does the pt drink ETOH?: Yes ETOH Use: Beer Does the pt have substance abuse?: No - Immunizations Immunizations are current?: Yes - POLST Patient has POLST: No PD ED PE NORMAL - Vitals Vital signs reviewed: Yes - General General: Alert and oriented X 3, No acute distress, Well developed/nourished - HEENT HEENT: Atraumatic, PERRL, EOMI - Cardiac Cardiac: RRR - Respiratory Respiratory: No respiratory distress, Clear bilaterally - Derm Derm: Normal color - Neuro Neuro: Alert and oriented X 3, No motor deficit, No sensory deficit - Psych Psych: Normal mood, Normal affect Results - Vitals Vitals: Vital Signs - 24 hr 08/01/22 08/01/22 08/01/22 19:57 22:30 22:32 Temperature 37 C 36.6 C Heart Rate 81 73 Respiratory 16 17 Rate Blood Pressure 189/98 H 177/79 H Blood Pressure 177/79 H [Left] O2 Saturation 99 98 08/01/22 23:49 Temperature Heart Rate 63 Respiratory 18 Rate Blood Pressure 153/81 H Blood Pressure [Left] O2 Saturation 100 Oxygen O2 Source Room air - EKG (time done) 2000 Rate: Rate (enter#) (82) Rhythm: NSR [place]: Normal Intervals: Normal [place] QRS: Normal Ischemia: Normal ST segments, Other (multiple pvcs) - Labs Labs: Laboratory Tests 08/01/22 08/01/22 08/01/22 20:21 20:21 20:21 WBC 8.8 RBC 4.20 Hgb 13.3 Hct 40.9 MCV 97.4 MCH 31.7 H MCHC 32.5 RDW 14.6 Plt Count 265 MPV 9.9 Neut # (Auto) 3.9 Lymph # (Auto) 3.4 [place] # (Auto) 1.2 H Eos # (Auto) 0.3 Baso # (Auto) 0.1 Absolute Nucleated RBC 0.00 Nucleated RBC % 0.0 Sodium 137 Potassium 3.6 Chloride 105 Carbon Dioxide 26 Anion Gap 6.0 BUN 23 H Creatinine 0.8 Estimated GFR (MDRD) 70 L Glucose 113 H Calcium 10.3 Total Bilirubin 0.5 AST 26 ALT 30 Alkaline Phosphatase 47 Troponin I High Sens 11.6 Total Protein 7.1 Albumin 3.7 Globulin 3.4 Albumin/Globulin Ratio 1.1 Lipase 46 08/01/22 23:00 WBC RBC Hgb Hct MCV MCH MCHC RDW Plt Count MPV Neut # (Auto) Lymph # (Auto) [place] # (Auto) Eos # (Auto) Baso # (Auto) Absolute Nucleated RBC Nucleated RBC % Sodium Potassium Chloride Carbon Dioxide Anion Gap BUN Creatinine Estimated GFR (MDRD) Glucose Calcium Total Bilirubin AST ALT Alkaline Phosphatase Troponin I High Sens 13.7 Total Protein Albumin Globulin Albumin/Globulin Ratio Lipase PD Medical Decision Making - ED course ED course: 72-year-old woman presents with heart palpitations this evening, high blood pressure, and chest tightness. CBC, abdominal panel, troponin x2 and chest x- ray ordered that were all negative. EKG showed multiple PVCs but no STEMI. Patient is well-appearing and her blood pressure has come down during her stay without any intervention. She is now asymptomatic. Education provided about PVCs. Plan to follow-up with primary care provider for referral to cardiology. Return precautions given. Departure - Departure Disposition: 01 Home, Self Care Clinical Impression: PVCs (premature ventricular contractions), Chest pain, Hypertension Condition: Good Instructions: Premature Ventricular Contract About Comments: You were seen in the emergency department for medical evaluation. Your blood work including troponin, EKG, and chest x-ray uncovered no emergent cause for your symptoms. You are having multiple PVCs and should follow-up with your primary care provider about this. You may need referral to cardiology for further work-up. Return to the emergency department for any new or worsening symptoms or other concerns.
== END 2022-08-02 00:21 | disposition home or self-care (01) ==
LOC: ED 19:53
DX: I49.3 Ventricular premature depolarization (principal); R07.9 Chest pain, unspecified; I10 Essential (primary) hypertension
CPT/HCPCS: 36415; 80053; 83690; 84484; 85025; 93005; 99284

== ENCOUNTER 2022-12-30 07:15 | Outpatient (CLI) | payer MEDICARE, OTHER | END 2022-12-30 07:30 | disposition home or self-care (01) | LOC: LAB.N 07:15 | PROVIDERS: ATTEND Physician Assistant Medical | DX: N30.00 Acute cystitis without hematuria (principal) | CPT/HCPCS: 87086; 87181 ==

== ENCOUNTER 2023-01-18 07:47 | Outpatient (CLI) | payer MEDICARE, OTHER | END 2023-01-18 07:48 | disposition home or self-care (01) | LOC: DI 07:47 | PROVIDERS: ATTEND Physician Assistant | DX: I51.7 Cardiomegaly (principal) | CPT/HCPCS: 93306 ==